=== PATIENT | female | born 1930 | race Caucasian/White ===

== ENCOUNTER → 2017-03-26 | Outpatient (CLI) | payer MEDICARE, BC ==
[~2017-03-26] MED LIST: ALLERGY MULTI-1 EACH PO; AMBIEN; AMBIEN PO; AMBIEN10 MG PO; ASPIRIN; ASPIRIN81 M1 PO; B6100 MG PO; BAYER CHEWABLE81 MG PO; CALCIUM 600 + D1 TA1 PO; CRESTOR40 MG PO; CRESTOR5 MG PO; DICLOFENAC; DIURIL PO; HERBAL LAXATIVE; LINZESS145 MCG PO; MACRODANTIN; MACRODANTIN50 MG PO; METFORMIN PO; MILK OF MAGNESIA PO; MULTI VITAMIN1 EACH PO; MULTI VITAMINS W1 MG PO; MULTI-VITAMIN1 TAB; PROTONIX PO; TOPROL XL; TOPROL XL PO; TYLOX 5-500 CA1 EACH PO; VICODIN; VITAMIN B-625 MG PO; VITAMIN B12-FO1 EACH PO; VITAMIN C60 MG; VOLTAREN50 MG PO; VOLTAREN75 MG PO; ZOCOR; ZYRTEC; [UNRECOGNIZED DRUG - OTHER] PO
[2017-03-26 09:17] LABS: BASOPHIL% 0.7 % (0-2.5); DIFF IND NO; EOSINOPHIL# 0.2 X10e3 (0-0.7); EOSINOPHIL% 3.2 % (0.0-7.0); HEMATOCRIT 33.9 % (35.0-45.0); HEMOGLOBIN 11.3 gm/dL (12.0-16.0); LYMPHOCYTE# 1.8 X10e3 (1.0-3.5); MEAN CELL VOLUME 92.5 FL (83-96); MEAN CORPUSCULAR HEMOGLOBIN 30.9 PG (28-34); MEAN CORPUSCULAR HGB CONC 33.4 g/dL (30-36); MEAN PLATELET VOLUME 8.8 FL (6.5-11.5); MONOCYTE# 0.5 X10e3 (0-1.0); MONOCYTE% 8.2 % (3.0-12.0); NEUTROPHIL% 54.9 % (40-75); PLATELET COUNT 257 X10e3 (140-420); RED BLOOD COUNT 3.67 X10e (3.90-5.30); RED CELL DISTRIBUTION WIDTH 13.3 % (11.0-15.5); WHITE BLOOD COUNT 5.5 X10e3 (4.0-10.5)
[2017-03-26 09:22] LABS: URINE APPEARANCE CLEAR; URINE BILIRUBIN NEG (NEG); URINE BLOOD NEG (NEG); URINE COLOR YELLOW; URINE GLUCOSE NEG (NEG); URINE KETONE NEG (NEG); URINE LEUKOCYTE ESTERASE 2+ (NEG); URINE NITRATE NEG (NEG); URINE PROTEIN NEG (NEG); URINE SPECIFIC GRAVITY 1.017 (1.003-1.035); URINE UROBILINOGEN 0.2 MG/DL (NEG)
[2017-03-26 09:25] LABS: U HYALINE CASTS AUWI 0-2 /[LPF]; URBCS1 AUWI 0-2 /[HPF] (0-2); URINE BACTERIA AUWI NEG (NEGATIVE); URINE SQUAMOUS EPITHELIAL CELL OCC /[HPF]
[2017-03-26 09:37] LABS: URINE SOURCE CLEAN CATCH
[2017-03-26 10:31] LABS: CREATININE,RANDOM URINE 91 mg/dL; TOTAL PROTEIN,RANDOM URINE <10 mg/dl (<10)
[2017-03-26 10:57] LABS: BUN/CREATININE RATIO 35.45; CALCIUM SERUM 9.4 mg/dL (8.4-10.2); CREATININE SERUM 1.1 mg/dL (0.6-1.4); GLOM FILT RATE Estimated 45.8 mL/min (>60); PHOSPHOROUS 4.2 mg/dL (2.5-4.6); POTASSIUM 4.3 mmol/L (3.5-5.1)
[2017-04-02 09:09] LABS: CALCIUM (PTHINTACT) 9.5 mg/dL (8.6-10.4)
== END | disposition home or self-care (01) ==
LOC: CLAB 08:40
PROVIDERS: Internal Medicine Nephrology
DX: D63.1 Anemia in chronic kidney disease (principal); N25.81 Secondary hyperparathyroidism of renal origin; E55.9 Vitamin D deficiency, unspecified
CPT/HCPCS: 36415; 80048; 81003; 82306; 82310; 82570; 82728; 83540; 83550; 83970; 84100; 84156; 85025